=== PATIENT | female | born 1960 | race Caucasian/White ===

== ENCOUNTER 2020-03-13 09:36 | Outpatient (REF) | payer OTHER, SELFPAY ==
[2020-03-13 10:15] LABS: COVID-19 Test Negative (Negative); IDNOW Serial# 55D5AD1C
== END 2020-03-13 09:37 | disposition home or self-care (01) ==
LOC: HO.EMPCOV 09:36
PROVIDERS: PCP Internal Medicine; Visit Provider Internal Medicine
DX: Z20.828 Contact with and (suspected) exposure to other viral communicable diseases (principal)
CPT/HCPCS: 87635; C9803

== ENCOUNTER 2020-06-13 07:39 | Outpatient (REF) | payer OTHER, SELFPAY ==
[2020-06-13 07:58] LABS: COVID-19 Test Negative (Negative)
== END 2020-06-13 07:40 | disposition home or self-care (01) ==
LOC: HO.EMPCOV 07:39
PROVIDERS: Visit Provider Internal Medicine
DX: Z20.822 Contact with and (suspected) exposure to COVID-19 (principal)
CPT/HCPCS: 36415; 87635; C9803

== ENCOUNTER 2020-07-04 07:35 | Outpatient (REF) | payer OTHER, SELFPAY ==
[2020-07-04 08:17] LABS: COVID-19 Test Negative (Negative); IDNOW Serial# 55D5AD1C
== END 2020-07-04 07:36 | disposition home or self-care (01) ==
LOC: HO.EMPCOV 07:35
PROVIDERS: Visit Provider Internal Medicine
DX: Z20.822 Contact with and (suspected) exposure to COVID-19 (principal)
CPT/HCPCS: 36415; 87635; C9803

== ENCOUNTER 2020-07-13 09:29 | Outpatient (REF) | payer OTHER, SELFPAY ==
[2020-07-13 09:43] LABS: COVID-19 Test Positive (Negative); IDNOW Serial# 55D5AD1C
== END 2020-07-13 09:30 | disposition home or self-care (01) ==
LOC: HO.LAB 09:29
PROVIDERS: Visit Provider Internal Medicine
DX: Z20.822 Contact with and (suspected) exposure to COVID-19 (principal)
CPT/HCPCS: 36415; 87635; C9803

== ENCOUNTER 2020-07-13 10:24 | Outpatient (REF) | payer OTHER, SELFPAY ==
--- NOTE | ~2020-07-13 | XR_ITS ---
EXAMINATION: XR CHEST CLINICAL INFORMATION: Shortness of breath COMPARISON: None TECHNIQUE: 2 views of the chest were obtained. FINDINGS: No significant abnormality is noted involving the heart, lungs, mediastinum, bony thorax or soft tissues. XR/XR chest 2V IMPRESSION: Unremarkable chest examination.
== END 2020-07-13 10:25 | disposition home or self-care (01) ==
LOC: HO.HMGCX 10:24
PROVIDERS: PCP Internal Medicine; Visit Provider Hospitalist
DX: R06.02 Shortness of breath (principal)
CPT/HCPCS: 71046

== ENCOUNTER 2020-08-07 08:58 | Outpatient (REF) | payer OTHER, SELFPAY ==
[2020-08-07 11:34] LABS: Glucose Urine UA NEG (NEG); Leukocyte Esterase Urine 1+ (NEG); Nitrite Urine NEG (NEG); PH 5.5 (5.0-8.0); Urine Blood NEG (NEG); Urine Ketones NEG (NEG); Urine Protein NEG (NEG-TRACE)
[2020-08-07 11:37] LABS: Appearance Urine HAZY; Color Urine YELLOW
[2020-08-07 11:40] LABS: Hematocrit 41.3 % (37-47); Hemoglobin 13.4 g/dl (12.0-16.0); Mean Corpuscular HGB Conc 32.4 g/dl (31.0-35.0); Mean Corpuscular Hemoglobin 29.1 pg (27.0-33.0); Mean Corpuscular Volume 89.6 fL (80-98); Mean Platelet Volume 10.4 fL (9.4-12.3); Platelet Count 278 X10*3/uL (160-400); Red Blood Count 4.61 X10*6/uL (4.20-5.50); Red Cell Distribution Width 13.2 % (11.0-16.0); White Blood Count 6.4 X10*3/uL (4.8-10.8)
[2020-08-07 11:50] LABS: RBC Urine 0 /HPF (0); Squamous Epithelial Cell Urine 1+ /LPF
[2020-08-07 11:51] LABS: Mucus Urine 1+ /LPF
[2020-08-07 11:56] LABS: Alanine Aminotransferase 25 U/L (0-31); Alkaline Phosphatase 75 U/L (39-117); Anion Gap 14 (12-20); Aspartate Amino Transferase 23 U/L (5-31); Bilirubin Total 0.7 mg/dL (0.0-1.0); Blood Urea Nitrogen 13 mg/dL (9-16); Calcium 8.8 mg/dL (8.4-10.2); Carbon Dioxide 24 mmol/L (22-29); Chloride 104 mmol/L (96-108); Cholesterol 221 mg/dL; Estimated Glomerular Filt Rate > 60; Glucose Fasting 103 mg/dL (60-99); HDL Cholesterol 77 mg/dL; LDL Cholesterol Calculated 129 mg/dl; Potassium 4.4 mmol/L (3.3-5.1); Sodium 138 mmol/L (135-145); Total Protein 6.7 g/dL (6.5-8.0); Triglycerides 78 mg/dL
[2020-08-07 12:09] LABS: TSH reflex Free T4 1.15 uIU/mL (0.32-4.0)
== END 2020-08-07 08:59 | disposition home or self-care (01) ==
LOC: HO.HMGCLDS 08:58
PROVIDERS: PCP Internal Medicine; Visit Provider Internal Medicine
DX: R53.83 Other fatigue (principal)
CPT/HCPCS: 36415; 80053; 80061; 81001; 82306; 84443; 85027

== ENCOUNTER 2021-01-10 08:46 | Outpatient (REF) | payer OTHER, SELFPAY ==
[2021-01-10 11:26] LABS: Appearance Urine CLEAR; Color Urine YELLOW; Glucose Urine UA NEG (NEG); Leukocyte Esterase Urine TRACE (NEG); Nitrite Urine NEG (NEG); Urine Blood NEG (NEG); Urine Ketones NEG (NEG); Urine Protein NEG (NEG-TRACE)
[2021-01-10 11:46] LABS: Alanine Aminotransferase 25 U/L (0-31); Albumin Level 4.3 g/dL (3.5-5.0); Alkaline Phosphatase 64 U/L (39-117); Anion Gap 13 (12-20); Aspartate Amino Transferase 24 U/L (5-31); Bilirubin Total 0.7 mg/dL (0.0-1.0); Blood Urea Nitrogen 14 mg/dL (9-16); Calcium 9.5 mg/dL (8.4-10.2); Carbon Dioxide 27 mmol/L (22-29); Chloride 104 mmol/L (96-108); Estimated Glomerular Filt Rate > 60; Glucose Fasting 94 mg/dL (60-99); Potassium 4.8 mmol/L (3.3-5.1); Sodium 139 mmol/L (135-145)
[2021-01-10 12:31] LABS: Renal Epithelial Cells Urine TRACE /LPF; Squamous Epithelial Cell Urine TRACE /LPF
[2021-01-10 12:32] LABS: Bacteria Urine TRACE /LPF; RBC Urine 0 /HPF (0)
[2021-01-18 09:21] LABS: Aldosterone/Renin Ratio 4.8 Ratio (0.9-28.9); Plasma Renin Activity 0.84 ng/mL/h (0.25-5.82)
== END 2021-01-10 08:47 | disposition home or self-care (01) ==
LOC: HO.HMGCLDS 08:46
PROVIDERS: PCP Internal Medicine; Visit Provider Internal Medicine
DX: I10 Essential (primary) hypertension (principal)
CPT/HCPCS: 36415; 80053; 81001; 82088; 82530; 84443

== ENCOUNTER 2021-01-10 09:34 | Outpatient (REF) | payer OTHER, SELFPAY ==
[2021-01-10 10:09] LABS: COVID-19 Test Negative (Negative)
== END 2021-01-10 09:35 | disposition home or self-care (01) ==
LOC: HO.LAB 09:34
PROVIDERS: Visit Provider Internal Medicine
DX: Z20.822 Contact with and (suspected) exposure to COVID-19 (principal)
CPT/HCPCS: 36415; 87635; C9803

== ENCOUNTER 2021-02-05 14:50 | Outpatient (REF) | payer OTHER, SELFPAY | END 2021-02-05 14:51 | disposition home or self-care (01) | LOC: HO.LAB 14:50 | PROVIDERS: PCP Internal Medicine; Visit Provider Internal Medicine | DX: Z20.822 Contact with and (suspected) exposure to COVID-19 (principal) | CPT/HCPCS: C9803; U0003; U0005 ==

== ENCOUNTER → 2021-03-26 09:46 | Outpatient (BNVA) | payer OTHER, SELFPAY | LOC: CF 12:06 | PROVIDERS: PCP Internal Medicine; Referring Provider Internal Medicine; Visit Provider Internal Medicine Cardiovascular Disease ==

== ENCOUNTER 2021-03-26 11:08 | Outpatient (REF) | payer OTHER, SELFPAY ==
[2021-03-26 12:01] LABS: COVID-19 Test Negative (Negative); IDNOW Serial# 08D9AD1C
== END 2021-03-26 11:09 | disposition home or self-care (01) ==
LOC: HO.LAB 11:08
PROVIDERS: Visit Provider Internal Medicine
DX: Z20.822 Contact with and (suspected) exposure to COVID-19 (principal)
CPT/HCPCS: 36415; 87635; C9803

== ENCOUNTER → 2021-04-12 07:12 | Outpatient (REF) | payer OTHER, SELFPAY ==
--- NOTE | 2021-04-12 07:34 | CA_ITS ---
Transthoracic Echocardiogram Patient (Last, First, Middle): Michelle Jackman, Gender: Female Date of : 1960 Age: 60 Procedure Date: 04/12/2021 Procedure Type: Transthoracic Echocardiogram Location: OP Height: 160.02 cm Weight: 75.75 kg BSA: 1.79 m2 Heart Rate: bpm BP: 110 / 70 mmHg Referring MD: Westley Haines MD Symptoms: I10 - Essential (primary) hypertension Study Quality: Fair ECG Rhythm: Sinus Conclusions: - The left ventricular systolic function is normal. The calculated ejection fraction is 62% by biplane method. - There is mild calcification of the aortic valve. - There is mild anterior mitral leaflet thickening. There is mild mitral valve regurgitation. Findings Left Ventricle Normal left ventricular cavity size. There is normal left ventricular wall thickness. The left ventricular systolic function is normal. The calculated ejection fraction is 62% by biplane method. There is no evidence of regional wall motion abnormalities. Diastolic function is normal for age. Right Ventricle Normal right ventricular cavity size and systolic function. Atria Both atria are normal in size. Aortic Valve There is a normal trileaflet aortic valve. There is mild calcification of the aortic valve. There is no aortic valve stenosis. There is trace (trivial) aortic valve regurgitation. Mitral Valve There is mild anterior mitral leaflet thickening. There is mild mitral valve regurgitation. There is no mitral valve stenosis. Pulmonic Valve The pulmonic valve was not well visualized. Tricuspid Valve Normal tricuspid valve structure. There is trace tricuspid valve regurgitation. The pulmonary artery systolic pressure is normal. Great Vessels The aortic annulus, sinuses of valsalva, asc aorta, and aortic arch are normal in size. Venous The inferior vena cava is normal in size and collapses greater than 50% with inspiration. Pericardium/Pleural There is no evidence of pericardial effusion. Prior Study Comparison No prior study available for comparison. Measurements 2D Linear Measurements IVSd: 0.88 0.6-0.9/0.6-1.0 cm LVIDd: 4.41 3.9-5.3/4.2-5.9 cm LVIDd Index: 2.46 2.4-3.2/2.2-3.1 cm/m2 LVIDs: 2.78 2.0-3.6 cm LVPWd: 0.81 0.7-1.1 cm Ao Root: 2.80 2.1-3.5 cm LA Diam: 3.40 2.7-3.8/3.0-4.0 cm LAIDs Index: 1.90 1.5-2.3 cm/m2 LV Mass: 146.28 67-162/88-224 g LV Mass Index: 81.72 43-95/49-115 g/m2 LVOT Diam: 2.00 3.0+(-)1.3 cm 2D Systolic Function EF 4C: 58.70 >55% EF 2C: 66.70 >55% EF BiP: 62.10 >55% Mitral Valve MV Pk E: 0.84 MV PK A: 0.78 MV Decel Time: 199.00 E/A: 1.10 E'Lateral: 9.90 E'Medial: 7.18 E/E' Med: 11.60 E/E' Lat: 8.40 PHT: 58.00 MVA PHT: 3.79 Decel Dupage: 4.20 Aortic Valve AoV Pk Jeremy: 1.16 AoV Mn Jeremy: 0.79 AoV VTI: 0.27 AoV Pk Grad: 5.00 Aov Mn Grad: 3.00 BETO Cont.VTI: 3.02 LVOT LVOT Pk Jeremy: 1.18 LVOT Mn Jeremy: 0.72 LVOT VTI: 0.26 LVOT Pk Grad: 6.00 LVOT Mn Grad: 2.00 LVOT Diam: 2.00 LVOT Area: 3.14 Diastolic Function MV Pk E: 0.84 MV Pk A: 0.78 E/A: 1.10 E'Medial: 7.18 E/E' Med: 11.60 E' Laterial: 9.90 E/E' Lat: 8.40 Right Ventricle TAPSE (mm): 1.77 TVS' Jeremy: 11.30 Tricuspid Valve TR Pk Jeremy: 2.65 TR Pk Grad: 28.00 RA Press: 3.00 RVSP: 31.00 Great Vessels Aorta Ao Root-2D: 2.80 2.0-3.7 cm Ao Asc: 3.50 2.1-3.4 cm Ao Arch: 2.40 Updated in Other Vendor System with Status of Final Cosmo Leggett MD electronically signed on 04/14/2021 2:24:27 PM with status of Final
--- NOTE | 2021-04-12 07:34 | HM_ITS ---
Conclusion: 1. Patient was monitored for 13 days and 14 hours 2. Baseline rhythm is normal sinus rhythm with average heart of 81 beats per minute 3. No significant pauses or bradycardia noted 4. Rare ectopy noted with total burden of less than 0.1% 5. Total of 28 supraventricular tachycardia episodes with longest episode lasting 14 beats and the fastest episode at 198 beats per minute 6. One episode of 6 beat run of nonsustained VT noted 7. No patient reported events MTDD
[2021-04-18 17:01] LABS: Metanephrine, Free 34 pg/mL (<=57); Normetanephrines, Free 96 pg/mL (<=148); Total Metanephrine, Free 130 pg/mL (<=205)
== END ==
LOC: HO.CARD 07:12
PROVIDERS: PCP Internal Medicine; Visit Provider Internal Medicine Cardiovascular Disease
DX: R00.2 Palpitations (principal); I10 Essential (primary) hypertension
CPT/HCPCS: 36415; 83835; 93246; 93306

== ENCOUNTER → 2021-05-28 09:13 | Outpatient (BNVA) | payer OTHER, SELFPAY | PROVIDERS: PCP Internal Medicine; Referring Provider Internal Medicine; Visit Provider Internal Medicine Cardiovascular Disease ==

== ENCOUNTER 2021-08-15 09:12 | Outpatient (REF) | payer OTHER, SELFPAY ==
[2021-08-15 11:57] LABS: Hematocrit 41.3 % (37.0-47.0); Hemoglobin 13.7 g/dl (12.0-16.0); Mean Corpuscular HGB Conc 33.2 g/dl (31.0-35.0); Mean Corpuscular Hemoglobin 30.2 pg (27.0-33.0); Mean Corpuscular Volume 91.2 fL (80.0-98.0); Mean Platelet Volume 10.7 fL (9.4-12.3); Platelet Count 272 X10*3/uL (160-400); Red Blood Count 4.53 X10*6/uL (4.20-5.50); Red Cell Distribution Width 13.1 % (11.0-16.0); White Blood Count 7.3 X10*3/uL (4.8-10.8)
[2021-08-15 12:10] LABS: Vitamin D 25-OH Total 41.5 ng/mL (>30)
[2021-08-15 12:29] LABS: Alanine Aminotransferase 12 U/L (0-31); Albumin Level 4.4 g/dL (3.5-5.0); Alkaline Phosphatase 57 U/L (39-117); Anion Gap 16 (12-20); Aspartate Amino Transferase 19 U/L (5-31); Bilirubin Total 0.8 mg/dL (0.0-1.0); Blood Urea Nitrogen 16 mg/dL (9-16); Calcium 9.7 mg/dL (8.4-10.2); Carbon Dioxide 24 mmol/L (22-29); Chloride 102 mmol/L (96-108); Cholesterol 262 mg/dL; Estimated Glomerular Filt Rate > 60; Glucose Fasting 108 mg/dL (60-99); HDL Cholesterol 125 mg/dL; LDL Cholesterol Calculated 124 mg/dl; Potassium 4.8 mmol/L (3.3-5.1); Sodium 137 mmol/L (135-145); Total Protein 7.2 g/dL (6.5-8.0); Triglycerides 67 mg/dL
== END 2021-08-15 09:13 | disposition home or self-care (01) ==
LOC: HO.HMGCLDS 09:12
PROVIDERS: Visit Provider Internal Medicine
DX: Z00.00 Encounter for general adult medical examination without abnormal findings (principal); I10 Essential (primary) hypertension
CPT/HCPCS: 36415; 80053; 80061; 82306; 85027

== ENCOUNTER 2021-10-03 07:55 | Outpatient (REF) | payer OTHER, SELFPAY ==
--- NOTE | ~2021-10-03 | MM_ITS ---
EXAMINATION: MM SCREENING DIGITAL BREAST TOMOSYNTHESIS, BILATERAL CLINICAL INFORMATION: Screening. Asymptomatic. The lifetime risk of breast cancer based on the Tyrer-Cuzick Model is 8%. COMPARISON: Outside mammography: 06/24/2019, 05/12/2018, 05/06/2017 ([place]). TECHNIQUE: Digital breast tomosynthesis is performed in both the craniocaudal and mediolateral oblique views along with computer-aided detection (CAD). Synthesized 2D images are generated from the tomosynthesis. FINDINGS: The breasts are heterogeneously dense, which may obscure small masses (ACR BI-RADS breast composition Category c). There are no significant masses, abnormal calcifications, or other abnormalities. Breast tissue composition borders on average fibroglandular. Parenchymal pattern is similar to prior outside studies. No developing density or significant changes. MM/MM tomosynthesis screening BI IMPRESSION: There are no significant changes from prior study. ASSESSMENT: BI-RADS 1: Negative RECOMMENDATION: Routine annual mammography screening. This patient's information was entered into a reminder system with a target due date for their next mammogram.
== END 2021-10-03 07:56 | disposition home or self-care (01) ==
LOC: HO.MAMMO 07:55
PROVIDERS: Visit Provider Internal Medicine
DX: Z12.31 Encounter for screening mammogram for malignant neoplasm of breast (principal)
CPT/HCPCS: 77063; 77067

== ENCOUNTER 2022-04-03 09:55 | Outpatient (REF) | payer OTHER, SELFPAY ==
[2022-04-03 11:17] LABS: Appearance Urine Cloudy; Color Urine Yellow; Glucose Urine UA Negative (Negative); Leukocyte Esterase Urine Large (3+) (Negative); Nitrite Urine Negative (Negative); Specific Gravity - Urine <= 1.005 (1.005-1.025); UMIC TRIGGER UA YES; Urine Blood Small (1+) (Negative); Urine Ketones Negative (Negative); Urine Protein Negative (Neg-Trace)
[2022-04-03 11:34] LABS: Bacteria Urine Trace (None Seen); Hyaline Casts Urine 0-2 /LPF (0-2); RBC Urine 0-2 /HPF (0-2); WBC Urine >50 /HPF (0-5)
[2022-04-03 14:33] LABS: Basophils Absolute Auto 0.1 X10*3/uL (0.0-0.2); Basophils Percent Auto 0.6 % (0-2); Eosinophils Absolute Auto 0.2 X10*3/uL (0.0-0.4); Eosinophils Percent Auto 2.1 % (0-4); Hematocrit 43.7 % (37.0-47.0); Hemoglobin 14.1 g/dl (12.0-16.0); Imm Gran Abs Auto 0.02 X10*3/uL (0.00-0.03); Imm Gran Pct Auto 0.3 % (0.0-0.4); Lymphocytes Absolute Auto 2.5 X10*3/uL (1.2-4.9); Lymphocytes Percent Auto 32.4 % (20-40); MANUAL DIFF FLAG NO; Mean Corpuscular HGB Conc 32.3 g/dl (31.0-35.0); Mean Platelet Volume 11.1 fL (9.4-12.3); Monocytes Absolute Auto 0.5 X10*3/uL (0.1-1.2); Monocytes Percent Auto 6.7 % (2-11); Neutrophils Absolute Auto 4.5 x10*3/uL (2.0-8.3); Neutrophils Percent Auto 57.9 % (45-73); Platelet Count 239 X10*3/uL (160-400); Red Cell Distribution Width 13.2 % (11.0-16.0); White Blood Count 7.8 X10*3/uL (4.8-10.8)
[2022-04-03 16:56] LABS: Alanine Aminotransferase 18 U/L (0-31); Albumin Level 4.3 g/dL (3.5-5.0); Alkaline Phosphatase 63 U/L (39-117); Anion Gap 14 (12-20); Aspartate Amino Transferase 19 U/L (5-31); Bilirubin Total 0.6 mg/dL (0.0-1.0); Blood Urea Nitrogen 13 mg/dL (9-16); Calcium 9.4 mg/dL (8.4-10.2); Carbon Dioxide 27 mmol/L (22-29); Chloride 103 mmol/L (96-108); Cholesterol 253 mg/dL; Estimated Glomerular Filt Rate > 60; Glucose Fasting 106 mg/dL (60-99); HDL Cholesterol 112 mg/dL; LDL Cholesterol Calculated 131 mg/dl; Potassium 4.9 mmol/L (3.3-5.1); Sodium 139 mmol/L (135-145); TSH reflex Free T4 1.13 uIU/mL (0.32-4.0); Total Protein 6.8 g/dL (6.5-8.0); Triglycerides 52 mg/dL; Vitamin D 25-OH Total 45.2 ng/mL (>30)
== END 2022-04-03 09:56 | disposition home or self-care (01) ==
LOC: HO.HMGCLDS 09:55
PROVIDERS: PCP Internal Medicine; Visit Provider Internal Medicine
DX: Z00.00 Encounter for general adult medical examination without abnormal findings (principal); I10 Essential (primary) hypertension
CPT/HCPCS: 36415; 80053; 80061; 81001; 82306; 84443; 85025

== ENCOUNTER 2022-04-09 08:29 | Outpatient (REF) | payer OTHER, SELFPAY ==
--- NOTE | ~2022-04-09 | MM_ITS ---
EXAMINATION: BONE DENSITOMETRY CLINICAL INDICATION: Asymptomatic menopausal state. COMPARISON: None (current study represents initial baseline exam). TECHNIQUE: Using a [employer] DXA System (software version: 13.1) manufactured by [employer], dual-energy x-ray absorptiometry was performed of the lumbar spine and left hip. The images are of good technical quality. Summary results are attached. FINDINGS: AP SPINE L1-L4: BMD 1.052 g/cm2, Z-score -0.1, T-score -1.1, osteopenia. LEFT FEMUR, NECK: BMD 0.658 g/cm2, Z-score -1.6, T-score -2.7, osteoporosis. LEFT FEMUR, TOTAL: BMD 0.740 g/cm2, Z-score -1.3, T-score -2.1, osteopenia. IDENTIFIED RISK FACTORS: Menopause. HISTORY OF FRACTURE: None listed. MEDICATIONS: Calcium supplement and/or multivitamin. Vitamin D. MM/XR DEXA axial skeleton IMPRESSION: 1. DIAGNOSIS: Osteoporosis based on the lowest T-score value of -2.7 in the femoral neck applying World Health Organization criteria. 2. 10-YEAR FRACTURE RISK PREDICTION, FRAX: According to the guidelines, FRAX calculation should only be performed on patients in the osteopenia bone density category.?Therefore, FRAX was not performed on this patient.? 3. Treatment Recommendations: NOF guidelines recommend consideration for treatment in postmenopausal women and men age 50 and older presenting with the following: -A hip or vertebral (clinical or morphometric) fracture. -T-score less than or equal to -2.5 at the femoral neck or spine after appropriate evaluation to exclude secondary causes. -Low bone mass at the hip or spine and a 10-year fracture probability by FRAX of greater than or equal to 3% for hip fracture or greater than or equal to 20% for major osteoporotic fracture based on the [place] adapted WHO algorithm. 4. Other Recommendations: All treatment decisions require clinical judgment and consideration of individual patient factors, including patient preferences, comorbidities, previous drug use, risk factors not captured in the FRAX model (e.g. frailty, falls, vitamin D deficiency, increased bone turnover, interval significant decline in bone density) and possible under or overestimation of fracture risk by FRAX. Additional medical evaluation for secondary cause of low bone mineral density may be appropriate. FUTURE SCAN RECOMMENDATION: People with diagnosed cases of osteoporosis or at high risk for fracture should have regular bone mineral density tests. For patients eligible for Medicare, routine testing is allowed once every 2 years. The testing frequency can be increased to one year for patients who have rapidly progressing disease, those who are receiving or discontinuing medical therapy to restore bone mass, or have additional risk factors.
== END 2022-04-09 08:30 | disposition home or self-care (01) ==
LOC: HO.MAMMO 08:29
PROVIDERS: PCP Internal Medicine; Visit Provider Internal Medicine
DX: Z13.820 Encounter for screening for osteoporosis (principal); Z78.0 Asymptomatic menopausal state
CPT/HCPCS: 77080

== ENCOUNTER → 2022-05-22 08:39 | Outpatient (BNVA) | payer OTHER, SELFPAY | PROVIDERS: PCP Internal Medicine; Referring Provider Internal Medicine; Visit Provider Internal Medicine Cardiovascular Disease | DX: I47.1 Supraventricular tachycardia (principal); I10 Essential (primary) hypertension | CPT/HCPCS: 93005 ==

== ENCOUNTER 2022-10-10 07:56 | Outpatient (REF) | payer OTHER, SELFPAY ==
--- NOTE | ~2022-10-10 | MM_ITS ---
EXAMINATION: MM SCREENING DIGITAL BREAST TOMOSYNTHESIS, BILATERAL CLINICAL INFORMATION: Screening. Asymptomatic. The lifetime risk of breast cancer based on the Tyrer-Cuzick Model is 8%. COMPARISON: Mammography: 10/03/2021, 09/24/2019, outside exam 05/12/2018 ([place]). TECHNIQUE: Digital breast tomosynthesis is performed in both the craniocaudal and mediolateral oblique views along with computer-aided detection (CAD). Synthesized 2D images are generated from the tomosynthesis. Additional right MLO view is provided. FINDINGS: The breasts are heterogeneously dense, which may obscure small masses (ACR BI-RADS breast composition Category c). Breast tissue composition borders on average fibroglandular. There are no significant masses, abnormal calcifications, or other abnormalities. Parenchymal pattern is similar to prior studies. There is no developing density or architectural abnormality. The axilla and skin contours are unremarkable. No significant changes. MM/MM tomosynthesis screening BI IMPRESSION: No mammographic evidence of malignancy. ASSESSMENT: BI-RADS 1: Negative RECOMMENDATION: Routine annual mammography screening. This patient's information was entered into a reminder system with a target due date for their next mammogram.
== END 2022-10-10 07:57 | disposition home or self-care (01) ==
LOC: HO.MAMMO 07:56
PROVIDERS: PCP Internal Medicine; Visit Provider Internal Medicine
DX: Z12.31 Encounter for screening mammogram for malignant neoplasm of breast (principal)
CPT/HCPCS: 77063; 77067

== ENCOUNTER 2023-03-06 12:17 | Outpatient (AMB) | payer OTHER, SELFPAY ==
[2023-03-06 12:19] VITALS: BP 120/80; PULSE 104; O2SAT 96; BMI 28.9
--- NOTE | 2023-03-06 12:19 | A.OFFPC_ITS ---
Vital Signs 03/06/23 12:19 Height 5 ft 3 in Weight 163 lb 4 oz BMI 28.9 BP 120/80 Blood Pressure Location Rt brachial Position Sitting Pulse 104 H Pulse Source Pulse Oximeter Pulse Oximetry (%) 96 Oxygen Delivery Method Room Air Intake Visit Reasons: Followup rash, review Derm dx Intake Note: pt is here for f/u on rash, review derm dx Ply Splicer Required: No Accompanied by: Self / Same As Patient Allergies No Known Allergies Allergy (Verified 03/06/23 12:20) Medication List - Last Reconciled 03/06/23 by Coby Estes MD metoprolol tartrate 12.5 mg (1/2 x 25 mg) PO ONCE PRN olmesartan 5 mg PO DAILY Tobacco use date assessed: 05/02/22 Dental Screening Dental Screen Date: 03/06/23 Did you have a dental visit in the last 12 months?: Yes Did you have a dental problem in the last 6 months where you did not have access to dental care?: No Was dental information given to patient?: Patient has dentist HPI Followup rash, review Derm dx HPI Details Patient presents for the follow-up of chronic not pruritic rash for the last 6 months. She has been treated by local health information provider and tried cortisone cream and prednisone taper without significant improvement. Patient is looking for 2nd opinion. Hypertension is controlled on olmesartan. [facility] Medical History Skin cancer Annual physical exam SVT (supraventricular tachycardia) Chest pain HTN (hypertension) Right elbow tendinitis Fatigue DJD (degenerative joint disease) Lower back pain Surgical History H/O colonoscopy Family History Mother COPD (chronic obstructive pulmonary disease) Social History Housing: House Alcohol intake: current Alcohol intake frequency: holidays/special occasions only Patient Tobacco Use Status: Never used Tobacco e-Cigarette/Vaping Use: Never Used Second Hand Smoke Exposure: No Current occupational status: employed Cognitive needs: No Hearing needs: No Vision needs: No Questionnaire PHQ-9 Over the last 2 weeks, how often have you been bothered by any of the following problems? 1. Little interest or pleasure in doing things: not at all 2. Feeling down, depressed, or hopeless: not at all 3. Trouble falling or staying asleep, or sleeping too much: not at all 4. Feeling tired or having little energy: not at all 5. Poor appetite or overeating: not at all 6. Feeling bad about yourself - or that you are a failure or have let yourself or your family down: not at all 7. Trouble concentrating on things, such as reading the newspaper or watching television: not at all 8. Moving or speaking so slowly that other people could have noticed. Or the opposite - being so fidgety or restless that you have been moving around a lot more than usual: not at all 9. Thoughts that you would be better off or of hurting yourself in some way: not at all Total score: 0 Depression Screening Interpretation: Negative Depression Screening Done: Yes 09922 - PHQ-9 Billing: Yes Source: Developed by Drs. Abdi Rivera, Nuria Houston, Neri Velasquez and colleagues, with an educational toni from [employer]. Thrive Questionnaire Date Thrive assessed: 03/06/23 I am a: Patient What is your living situation today?: I have a steady place to live Within the past 12 months, did the food you bought not last and you didn't have the money to get more?: Never true Within the past 12 months, did you worry whether your food would run out before you got money to buy more?: Never true Do you have trouble paying for medicines?: No Do you have trouble getting transportation to medical appointments?: No Do you have trouble paying your heating and electricity bill?: No Do you have trouble taking care of your child, family member or friend?: No Do you have trouble with day-to-day activities such as bathing, preparing meals, shopping, managing finances, etc.?: No Are you currently unemployed and looking for a job?: No Are you interested in more education?: No Please select the resources that you would like help with: None Currently or been in a relationship where the following occur: no concerns reported AUDIT C Alcohol Use Questionnaire (AUDIT-C) 1. How often do you have a drink containing alcohol?: 2-3 times a week 2. How many drinks containing alcohol do you have on a typical day when you are drinking?: 1 or 2 3. How often do you have six or more drinks on one occasion?: Never Total Score: 3 Score Reviewed/Action Taken: Yes JORDY-7 AMB Questionnaire JORDY-7 Date JORDY - 7 assessed: 03/06/23 Feeling nervous, anxious, or on edge: 0 = Not at all Not being able to stop or control worryin = Not at all Worrying too much about different things: 0 = Not at all Trouble relaxin = Not at all Being so restless that it is hard to sit still: 0 = Not at all Becoming easily annoyed or irritable: 0 = Not at all Feeling afraid as if something awful might happen: 0 = Not at all Total JORDY-7 score (0-4 normal; 5-9 mild; 10-14 moderate; 15-21 severe): 0 Source: Developed by Drs. Abdi Rivera, Nuria Houston, Neri le nd colleagues, with an educational toni from [employer]. JORDY-7 Assessment Billing JORDY-7 Assessment Tool: JORDY-7 Assessment 00771 Review of Systems Const All systems reviewed & are unremarkable except as noted in HPI and below Reports no additional complaints Eyes Reports no additional complaints ENT Reports no additional complaints Card Reports no additional complaints Resp Reports no additional complaints GI Reports no additional complaints Reports no additional complaints Physical exam (Primary Care) Vital Signs: Last Vital Signs Pulse 104 H 03/06/23 12:19 BP 120/80 03/06/23 12:19 Pulse Ox 96 03/06/23 12:19 Oxygen Delivery Method Room Air 03/06/23 12:19 BMI result Body Mass Index 28.9 Tobacco/Smoking Status: Tobacco use Status Tobacco use date assessed 05/02/22 03/06/23 12:20 Patient Tobacco Use Status Never used Tobacco 03/06/23 12:20 e-Cigarette/Vaping Use Never Used 03/06/23 12:20 PHQ-9: PHQ-9 Score PHQ-9: Total score 0 03/06/23 12:27 Depression Screening Interpretation: Negative Thrive Assessment: Date of Thrive Assessment Date Thrive assessed 03/06/23 03/06/23 12:27 Currently or been in a relationship where the following occur: no concerns reported Const General: no acute distress HENMT Head: Yes normal to inspection Eyes General: appearance normal, both eyes and all related structures Resp Effort & Inspection: normal respiratory effort Auscultation: clear to auscultation bilaterally Cardio Rhythm: regular rhythm Heart sounds: S1 normal heart sound present and S2 normal heart sound present GI Inspection: Yes normal to inspection Palpation (GI): Soft to palpation Skin Other: Erythematous irregular borders rash with central clearing and slight scaling on the upper chest, back and extensor surface of extremities Assessment and Plan Assessment & Plan (1) HTN (hypertension): Code(s): I10 - Essential (primary) hypertension Plan: Continue olmesartan (2) Annual physical exam: Code(s): Z. - Encounter for general adult medical examination without abnormal findings (3) Rash: Comment: Treated by [facility] Code(s): R21 - Rash and other nonspecific skin eruption Plan: Patient will be referred for 2nd opinion to the health information provider of pt's choice Orders: Orders Comprehensive [place]. Panel Fast Today I10 - Essential (primary) hypertension, Z00. - Encounter for general adult medical examination without abnormal findings Erythrocyte Sedimentation Rate Today I10 - Essential (primary) hypertension, Z00.00 - Encounter for general adult medical examination without abnormal findings TSH reflex Free T4 Today I10 - Essential (primary) hypertension, R21 - Rash and other nonspecific skin eruption, Z00.00 - Encounter for general adult medical examination without abnormal findings Complete Blood Count Auto Diff Today I10 - Essential (primary) hypertension, Z00.00 - Encounter for general adult medical examination without abnormal findings Lipid Panel Today I10 - Essential (primary) hypertension, Z00.00 - Encounter for general adult medical examination without abnormal findings NANCY Reflex Titer and Pattern Today I10 - Essential (primary) hypertension, R21 - Rash and other nonspecific skin eruption, Z00.00 - Encounter for general adult medical examination without abnormal findings Hemoglobin A1c Today I10 - Essential (primary) hypertension, R21 - Rash and other nonspecific skin eruption, Z00.00 - Encounter for general adult medical examination without abnormal findings UA w Microscopic Today I10 - Essential (primary) hypertension, R21 - Rash and o ther nonspecific skin eruption, Z00.00 - Encounter for general adult medical examination without abnormal findings Medications: New azithromycin For 250 mg dose pack: take 500 mg today (day 1), then 250 mg for 4 days (days 2-5) PO 6 tabs 0RF albuterol sulfate 90 mcg/actuation 2 puffs inhalation Q6H PRN 6.7 grams 0RF shortness of breath or wheezing Coding Level of Care Code Est Pt Level 3 (21727) Diagnoses HTN (hypertension) I10 Annual physical exam Z00.00 Rash R21 Additional Codes JORDY-7 Assessment Billing - JORDY-7 Assessment Tool: JORDY-7 Assessment 15503 ([id number])
== END 2023-03-06 13:51 | disposition home or self-care (01) ==
PROVIDERS: PCP Internal Medicine; Visit Provider Internal Medicine
DX: I10 Essential (primary) hypertension (principal); Z00.00 Encounter for general adult medical examination without abnormal findings; R21 Rash and other nonspecific skin eruption
CPT/HCPCS: 99213

== ENCOUNTER 2023-03-12 06:40 | Outpatient (REF) | payer OTHER, SELFPAY ==
[2023-03-12 11:58] LABS: MANUAL DIFF FLAG NO
[2023-03-12 12:03] LABS: Appearance Urine Clear; Color Urine Yellow; Glucose Urine UA Negative (Negative); Leukocyte Esterase Urine Trace (Negative); Nitrite Urine Negative (Negative); Specific Gravity - Urine <= 1.005 (1.005-1.025); UMIC TRIGGER UA YES; Urine Blood Negative (Negative); Urine Ketones Negative (Negative); Urine Protein Negative (Neg-Trace)
[2023-03-12 12:06] LABS: Bacteria Urine None Seen (None Seen); Hyaline Casts Urine 0-2 /LPF (0-2); RBC Urine 0-2 /HPF (0-2); Squamous Epithelial Cell Urine 0-2 /HPF (0-2)
[2023-03-12 12:10] LABS: Basophils Percent Auto 0.4 % (0-2); Eosinophils Absolute Auto 0.3 X10*3/uL (0.0-0.4); Eosinophils Percent Auto 3.7 % (0-4); Hematocrit 40.5 % (37.0-47.0); Hemoglobin 13.3 g/dl (12.0-16.0); Imm Gran Abs Auto 0.05 X10*3/uL (0.00-0.03); Imm Gran Pct Auto 0.7 % (0.0-0.4); Lymphocytes Absolute Auto 2.8 X10*3/uL (1.2-4.9); Lymphocytes Percent Auto 41.6 % (20-40); Mean Corpuscular HGB Conc 32.8 g/dl (31.0-35.0); Mean Corpuscular Hemoglobin 30.2 pg (27.0-33.0); Mean Platelet Volume 10.2 fL (9.4-12.3); Monocytes Absolute Auto 0.4 X10*3/uL (0.1-1.2); Monocytes Percent Auto 6.2 % (2-11); Neutrophils Absolute Auto 3.2 x10*3/uL (2.0-8.3); Neutrophils Percent Auto 47.4 % (45-73); Platelet Count 322 X10*3/uL (160-400); Red Cell Distribution Width 12.7 % (11.0-16.0); White Blood Count 6.8 X10*3/uL (4.8-10.8)
[2023-03-12 12:20] LABS: Estimated Average Glucose 111 mg/dL; Hemoglobin A1c % 5.5 % (<6.0)
[2023-03-12 12:27] LABS: Alanine Aminotransferase 22 U/L (0-31); Albumin Level 3.9 g/dL (3.5-5.0); Alkaline Phosphatase 68 U/L (39-117); Anion Gap 11 (12-20); Aspartate Amino Transferase 19 U/L (5-31); Bilirubin Total 0.3 mg/dL (0.0-1.0); Blood Urea Nitrogen 15 mg/dL (9-16); Carbon Dioxide 28 mmol/L (22-29); Chloride 103 mmol/L (96-108); Cholesterol 229 mg/dL (<200); Estimated Glomerular Filt Rate > 60; Glucose Fasting 104 mg/dL (60-99); HDL Cholesterol 91 mg/dL (>40); LDL Cholesterol Calculated 117 mg/dL (<100); Potassium 4.5 mmol/L (3.3-5.1); Sodium 137 mmol/L (135-145); Total Protein 6.8 g/dL (6.5-8.0); Triglycerides 108 mg/dL (<150)
[2023-03-12 12:43] LABS: TSH reflex Free T4 2.07 uIU/mL (0.32-4.0)
[2023-03-12 12:55] LABS: Erythrocyte Sedimentation Rate 8 MM/HR (0-20)
[2023-03-17 14:48] LABS: Anti Nuclear Antibody Screen NEGATIVE (NEGATIVE)
== END 2023-03-12 06:41 | disposition home or self-care (01) ==
LOC: HO.HMGCLDS 06:40
PROVIDERS: PCP Internal Medicine; Visit Provider Internal Medicine
DX: Z00.00 Encounter for general adult medical examination without abnormal findings (principal); I10 Essential (primary) hypertension; R21 Rash and other nonspecific skin eruption
CPT/HCPCS: 36415; 80053; 80061; 81001; 83036; 84443; 85025; 85652; 86038

== ENCOUNTER 2023-03-27 08:53 | Outpatient (AMB) | payer OTHER, SELFPAY ==
[2023-03-27 08:58] VITALS: BP 134/78; PULSE 70; O2SAT 100; BMI 29.9
--- NOTE | 2023-03-27 08:58 | MHC.PC.OV ---
Vital Signs 03/27/23 08:58 Height 5 ft 3 in Weight 169 lb BMI 29.9 BP 134/78 Blood Pressure Location Rt brachial Position Sitting Pulse 70 Pulse Source Pulse Oximeter Pulse Oximetry (%) 100 Oxygen Delivery Method Room Air Intake Visit Reasons: Annual Intake Note: Pt is here today for PE. Pt states that she has been having R hip pain and lower back pain. Allergies No Known Allergies Allergy (Verified 03/27/23 09:01) Medication List - Last Reconciled 03/27/23 by Coby Estes MD albuterol sulfate 90 mcg/actuation 2 puffs inhalation Q6H PRN metoprolol tartrate 12.5 mg (1/2 x 25 mg) PO ONCE PRN olmesartan 5 mg PO DAILY Tobacco use date assessed: 03/27/23 Dental Screening Dental Screen Date: 03/27/23 Did you have a dental visit in the last 12 months?: Yes Did you have a dental problem in the last 6 months where you did not have access to dental care?: No Was dental information given to patient?: Patient has dentist HPI Annual HPI Details Pt presents for PE. Pt c/o persistent rash and has OV with Dermatology in [facility] in 2 weeks. Patient complains of lower back pain radiating to right posterior thigh and right hip on and off for few weeks. Patient denies any weakness, change in bowel bladder function PFSH Medical History Skin cancer Annual physical exam SVT (supraventricular tachycardia) Chest pain HTN (hypertension) Right elbow tendinitis Fatigue DJD (degenerative joint disease) Lower back pain Surgical History H/O colonoscopy Family History Mother COPD (chronic obstructive pulmonary disease) Social History Housing: House Alcohol intake: current Alcohol intake frequency: holidays/special occasions only Patient Tobacco Use Status: Never used Tobacco e-Cigarette/Vaping Use: Never Used Second Hand Smoke Exposure: No Current occupational status: employed Cognitive needs: No Hearing needs: No Vision needs: No Questionnaire Thrive Questionnaire Date Thrive assessed: 03/06/23 JORDY-7 AMB Questionnaire JORDY-7 Date JORDY - 7 assessed: 03/06/23 Source: Developed by Drs. Abdi Rivera, Nuria Houston, Neri Velasquez and colleagues, with an educational toni from [employer]. Review of Systems Const All systems reviewed & are unremarkable except as noted in HPI and below Reports no additional complaints Eyes Reports no additional complaints ENT Reports no additional complaints Card Reports no additional complaints Resp Reports no additional complaints GI Reports no additional complaints Reports no additional complaints Physical exam (Primary Care) Vital Signs: Last Vital Signs Pulse 70 03/27/23 08:58 BP 134/78 03/27/23 08:58 Pulse Ox 100 03/27/23 08:58 Oxygen Delivery Method Room Air 03/27/23 08:58 BMI result Body Mass Index 29.9 Tobacco/Smoking Status: Tobacco use Status Tobacco use date assessed 03/27/23 03/27/23 09:03 Patient Tobacco Use Status Never used Tobacco 03/27/23 09:03 e-Cigarette/Vaping Use Never Used 03/27/23 09:03 Thrive Assessment: Date of Thrive Assessment Date Thrive assessed 03/06/23 03/27/23 09:03 Const General: no acute distress HENMT Head: Yes normal to inspection Ears: hearing grossly normal bilaterally Face and sinus: Yes normal facial exam Eyes General: appearance normal, both eyes and all related structures Neck Neck: Yes no lymphadenopathy and Yes supple Resp Effort & Inspection: normal respiratory effort Auscultation: clear to auscultation bilaterally Cardio Rhythm: regular rhythm Heart sounds: S1 normal heart sound present and S2 normal heart sound present GI Inspection: Yes normal to inspection Palpation (GI): Soft to palpation Percussion: Yes normal to percussion Auscultation: normal bowel sounds Back/Spine/Pelvis Other: There is decreased range of motion in lumbar spine, paraspinal tenderness right more than left, straight leg rising 60 degrees on the right 90 degrees on the left Assessment and Plan Assessment & Plan (1) Hip pain, right: Code(s): M25.551 - Pain in right hip Plan: Referred to physical therapy, meloxicam and baclofen are prescribed (2) Rash: Comment: Treated by [place] [facility] Code(s): R21 - Rash and other nonspecific skin eruption Plan: f/u with dermatology (3) Osteoporosis: Comment: 04/11 T score -2.6 femoral neck, patient will see [facility] Code(s): M81.0 - Age-related osteoporosis without current pathological fracture Plan: cont vit D and exercise (4) Annual physical exam: Code(s): Z00.00 - Encounter for general adult medical examination without abnormal findings Plan: well balanced diet, regular exercise, refer for colonoscopy (5) HTN (hypertension): Code(s): I10 - Essential (primary) hypertension Plan: cont Olmesartan Orders: Orders Lipid Panel 365 Days I10 - Essential (primary) hypertension, M81.0 - Age-related osteoporosis without current pathological fracture, Z00.00 - Encounter for general adult medical examination without abnormal findings Complete Blood Count Auto Diff 365 Days I10 - Essential (primary) hypertension, M81.0 - Age-related osteoporosis without current pathological fracture, Z00.00 - Encounter for general adult medical examination without abnormal findings Vitamin D 25-OH Total 365 Days I10 - Essential (primary) hypertension, M81.0 - Age-related osteoporosis without current pathological fracture, Z00.00 - Encounter for general adult medical examination without abnormal findings PT Evaluation and Treatment Today M25.551 - Pain in right hip Comprehensive [place]. Panel Fast 365 Days I10 - Essential (primary) hypertension, M81.0 - Age-related osteoporosis without current pathological fracture, Z00.00 - Encounter for general adult medical examination without abnormal findings TSH reflex Free T4 365 Days I10 - Essential (primary) hypertension, M81.0 - Age-related osteoporosis without current pathological fracture, Z00.00 - Encounter for general adult medical examination without abnormal findings Referrals Dermatology Referral R21 - Rash and other nonspecific skin eruption Gastroenterology Referral Z00.00 - Encounter for general adult medical examination without abnormal findings Medications: New meloxicam 15 mg PO DAILY 20 tabs 0RF baclofen 10 mg PO BEDTIME 30 tabs 0RF Coding Level of Care Code Est Pt Prev Care 40-64y(71963) Diagnoses Hip pain, right M25.551 Rash R21 Osteoporosis M81.0 Annual physical exam Z00.00 HTN (hypertension) I10
== END 2023-03-27 09:51 | disposition home or self-care (01) ==
PROVIDERS: Visit Provider Internal Medicine
DX: M25.551 Pain in right hip (principal); R21 Rash and other nonspecific skin eruption; M81.0 Age-related osteoporosis without current pathological fracture; Z00.00 Encounter for general adult medical examination without abnormal findings; I10 Essential (primary) hypertension
CPT/HCPCS: 99396

== ENCOUNTER 2023-07-09 09:09 | Outpatient (AMB) | payer OTHER, SELFPAY ==
[2023-07-09 09:10] VITALS: BP 120/72; PULSE 61; BMI 29.7
--- NOTE | 2023-07-09 09:10 | A.OFFVIS_ITS ---
Intake Vital Signs 07/09/23 09:10 Height 5 ft 3 in Weight 167 lb 8.821 oz BMI 29.7 BP 120/72 Blood Pressure Location Lt brachial Position Sitting Pulse 61 Intake Visit Reasons: 1 yr follow up Intake Note: 1 year follow-up with ekg feeling good [employer] Required: No Allergies No Known Allergies Allergy (Verified 03/27/23 09:01) Medication List - Last Reconciled 07/09/23 by Westley Haines MD albuterol sulfate 90 mcg/actuation 2 puffs inhalation Q6H PRN metoprolol tartrate 12.5 mg (1/2 x 25 mg) PO ONCE PRN olmesartan 5 mg PO DAILY HPI HPI Comments History of Present Illness Details Michelle comes for follow-up. She is currently dealing with a diffuse skin condition with maculopapular rash of unclear etiology. She is currently taking no therapy for it. She says a blood pressures been very well control on low-dose olmesartan and wants to try to come off it. She has modified her lifestyle and participate in weight loss program. She also has not had any major episodes of SVT. She says she has 2 events 1 during daytime which resolved quickly and 1 during nighttime, she has not sure of that. She has not had any exertional chest pain. No shortness of breath, orthopnea, PND. [facility] Medical History Skin cancer Annual physical exam SVT (supraventricular tachycardia) Chest pain HTN (hypertension) Right elbow tendinitis Fatigue DJD (degenerative joint disease) Lower back pain Surgical History H/O colonoscopy Family History Mother COPD (chronic obstructive pulmonary disease) Social History Housing: House Alcohol intake: current Alcohol intake frequency: holidays/special occasions only Patient Tobacco Use Status: Never used Tobacco e-Cigarette/Vaping Use: Never Used Second Hand Smoke Exposure: No Current occupational status: employed Cognitive needs: No Hearing needs: No Vision needs: No Review of Systems Const Denies chills, Denies fatigue, Denies fever(s), Denies frequent falls, Denies weakness, Denies weight gain and Denies weight loss ENT Denies dizziness Card Denies chest pain, Denies leg edema, Denies lightheadedness, Denies palpitations, Denies dyspnea, Denies dyspnea on exertion, Denies orthopnea and Denies other (loss of consciousness) Resp Denies cough, Denies dyspnea and Denies dyspnea on exertion GI Denies hematochezia and Denies change in stool character Musc Denies abnormal gait, Denies muscle weakness, Denies numbness, Denies radiating pain into limb and Denies tingling Neuro Denies Abnormal speech present, Denies abnormal gait, Denies dizziness, Denies frequent falls, Denies numbness, Denies tingling and Denies weakness Endo Denies fatigue and Denies palpitations Physical Exam Vital Signs: Last Vital Signs Pulse 61 07/09/23 09:10 BP 120/72 07/09/23 09:10 BMI result Body Mass Index 29.7 Const General: cooperative, comfortable, no acute distress, alert, awake, anxious and well groomed Nutritional Appearance: overweight Orientation/consciousness: patient oriented x3 Limitations: no limitations Neck Neck: Yes trachea midline, Yes supple and Yes no JVD Chest Chest palpation & inspection: normal inspection of the chest Resp Effort & Inspection: normal respiratory effort Auscultation: clear to auscultation bilaterally Cardio Jugular venous distension: no JVD Palpation: normal PMI Rate: regular rate Rhythm: regular rhythm Heart sounds: S1 normal heart sound present, S2 normal heart sound present, no click, no gallops, no murmurs and no rubs GI Auscultation: normal bowel sounds Skin General skin exam: no rashes or lesions noted Neuro General: patient oriented x3 and no focal motor deficits Speech: No Abnormal speech present Extrem General: Yes no clubbing, cyanosis or edema Psych Appearance: grossly normal Affect: Anxious affect present Office Procedures EKG Details: EKG shows normal sinus rhythm with normal EKG [id number], Complete Assessment & Plan Assessment & Plan (1) SVT (supraventricular tachycardia): Comment: negative2 weeks Holter, f/u Dr. Haines Code(s): I47.1 - Supraventricular tachycardia Plan: Supraventricular tachycardia of AVNRT type. Patient has no recurrent symptoms. We discussed about avoidance of stimulants. Stress mitigation strategies was discussed. Also discussed about vagal maneuvers. If she has very prolonged episode she is advised take p.r.n. metoprolol as need be. No long-term therapy is recommended at this point in time. She understands management well. (2) HTN (hypertension): Code(s): I10 - Essential (primary) hypertension Plan: Hypertension which is currently well optimized. She wants to curtail use of antihypertensive wants to come of olmesartan. I think this is reasonable for blood pressure remains well controlled. Advised her to reduce her olmesartan to 2.5 mg daily. Advised to monitor her blood pressure on a regular basis. She is willing to do that. For blood pressure remains controlled we can discontinue olmesartan therapy and just follow lifestyle modification. We discussed about managing adequate hydration. Follow up in the clinic in 2 years time, sooner p.r.n.. Thank you for allowing me to partake in her care Medications: Changed From olmesartan Keep appt on 07/09/23 5 mg PO DAILY 90 tabs 0RF To olmesartan Keep appt on 07/09/23 2.5 mg (1/2 x 5 mg) PO DAILY 90 tabs 0RF Coding Level of Care Code Est Pt Level 4 (94359) Diagnoses SVT (supraventricular tachycardia) I47.1 HTN (hypertension) I10 CPT Codes EKG - CPT: 08546-[id number], Complete ([id number])
== END 2023-07-09 09:37 | disposition home or self-care (01) ==
PROVIDERS: PCP Internal Medicine; Visit Provider Internal Medicine Cardiovascular Disease
DX: I47.10 Supraventricular tachycardia, unspecified (principal); I10 Essential (primary) hypertension
CPT/HCPCS: 93010; 99214

== ENCOUNTER → 2023-07-09 09:09 | Outpatient (BNVA) | payer OTHER, SELFPAY | PROVIDERS: PCP Internal Medicine; Visit Provider Internal Medicine Cardiovascular Disease | DX: I47.10 Supraventricular tachycardia, unspecified (principal); I10 Essential (primary) hypertension; Z79.899 Other long term (current) drug therapy | CPT/HCPCS: 93005 ==

== ENCOUNTER 2024-05-06 16:17 | Outpatient (REF) | payer OTHER, SELFPAY | END 2024-05-06 16:18 | disposition home or self-care (01) | LOC: HO.MAMMO 16:17 | PROVIDERS: PCP Internal Medicine; Visit Provider Internal Medicine | DX: Z12.31 Encounter for screening mammogram for malignant neoplasm of breast (principal) | CPT/HCPCS: 77063; 77067 ==

== ENCOUNTER 2025-01-11 07:52 | Outpatient (REF) | payer OTHER, SELFPAY ==
[2025-01-11 12:01] LABS: Alanine Aminotransferase 33 U/L (0-31); Albumin Level 4.5 g/dL (3.5-5.0); Alkaline Phosphatase 80 U/L (39-117); Anion Gap 15 (12-20); Aspartate Amino Transferase 36 U/L (5-31); Blood Urea Nitrogen 13 mg/dL (9-16); Calcium 9.3 mg/dL (8.4-10.2); Carbon Dioxide 25 mmol/L (22-29); Chloride 105 mmol/L (96-108); Cholesterol 261 mg/dL (<200); Estimated Glomerular Filt Rate > 60; Gamma Glutamyl Transpeptidase 83 U/L (7-33); HDL Cholesterol 111 mg/dL (>40); Potassium 4.0 mmol/L (3.3-5.1); Sodium 141 mmol/L (135-145); Total Protein 7.4 g/dL (6.5-8.0); Triglycerides 56 mg/dL (<150)
[2025-01-11 13:27] LABS: Appearance Urine Clear; Glucose Urine UA Negative (Negative); PH 5.5 (5.0-9.0); Specific Gravity - Urine 1.010 (1.005-1.025); UMIC TRIGGER UA YES
== END 2025-01-11 07:53 | disposition home or self-care (01) ==
LOC: HO.HMGCLDS 07:52
PROVIDERS: PCP Internal Medicine; Visit Provider Internal Medicine
DX: I10 Essential (primary) hypertension (principal); K80.20 Calculus of gallbladder without cholecystitis without obstruction
CPT/HCPCS: 36415; 80053; 80061; 81001; 82977; 85025; 85652; 96127

== ENCOUNTER 2025-01-11 07:52 | Outpatient (AMB) | payer OTHER, SELFPAY ==
--- OUTSIDE RECORDS SUMMARY | 2025-01-11 07:56 | XMS_ITS | Clinical Summary ---
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 Active Yuvafem 10 MCG tablet vaginal tablet INSERT 1 TABLET TWICE A WEEK BY VAGINAL ROUTE FOR 84 DAYS. Active imiquimod (Aldara) 5 % cream Active ibuprofen 600 MG tablet Take 1 tablet by mouth every 6 (six) hours if needed. Active fluconazole (Diflucan) 150 MG tablet Take 1 tablet by mouth at bedtime. Active desonide (DesOwen) 0.05 % cream Active ProAir HFA 108 (90 Base) MCG/ACT inhaler INHALE 1 TO 2 PUFFS 6 TIMES A DAY NEEDED FOR WHEEZING FOR 5 DAYS Active Active Problems No known active problems Family History Medical History Relation Name Comments Macular degeneration Mother Relation Name Status Comments Mother Social History Tobacco Use Types Packs/Day Years Used Date Smoking Tobacco: Never Smokeless Tobacco: Never Tobacco Cessation:Counseling Given: Not Answered Comments Unknown Sex and Gender Information Value Date Recorded Sex Assigned at Female 02/18/2022 10:19 AM EDT Legal Sex Female 10:19 AM EDT Gender Identity Female 02/18/2022 10:19 AM EDT Sexual Orientation Straight 02/18/2022 10 :19 AM EDT Plan of Treatment Health Maintenance Due Date Last Done Comments CT Colonography 1961 Colonoscopy 1961 Colorectal Cancer Screening 1961 Depression Screening 1961 FIT DNA/Cologuard 1961 FIT 1961 FOBT 1961 HIV Screening 1961 SDOH Screening 1961 Sigmoidoscopy 1961 Disability Screening 1961 Alcohol/Substance Use Screening 1973 Hepatitis C Screening 1979 Pap Smear 1982 Cervical Cancer Screening 1991 HPV/Cotest 1991 Mammogram 2001 Pneumococcal Vaccine: 50+ Years (1 of 1 - PCV) 2011 Zoster Vaccines (1 of 2) 2011 Tobacco Screening 06/11/2024 06/11/2023 COVID-19 Vaccine (3 - 2024-2 6 season) 2024 09/25/2020, 09/04/2020 Influenza Vaccine (#1) 2024 , 02/01/2021 DTaP/Tdap/Td Vaccines (3 - T d or Tdap) 12/24/2030 12/24/2020, 02/02/2009 RSV Patients and Patients Aged 60 years or older (1 - 1-dose 75+ series) 2036 HIB Vaccines Aged Out No longer eligi ble based on patient's age to complete this topic HPV Vaccines Aged Out No longer eligi ble based on patient's age to complete this topic Hepatitis A Vaccines Aged Out No long er eligible based on patient's age to complete this topic Hepatitis B Vaccines Aged Out No long er eligible based on patient's age to complete this topic IPV Vaccines Aged Out No longer eligi ble based on patient's age to complete this topic Meningococcal B Vaccine Aged Out No l onger eligible based on patient's age to complete this topic Meningococcal Vaccine Aged Out No yousuf mitra eligible based on patient's age to complete this topic RSV under 20 months Aged Out No longe r eligible based on patient's age to complete this topic Rotavirus Vaccines Aged Out No longer eligible based on patient's age to complete this topic Insurance [employer]
--- NOTE | 2025-01-11 08:07 | MHC.PC.OV ---
Vital Signs 01/11/25 08:08 Height 5 ft 3 in Weight 181 lb BMI 32.1 BP 122/84 Blood Pressure Location Lt brachial Position Sitting Respiration 18 Pulse 92 Pulse Source Pulse Oximeter Temp 98.1 F Temp Source Oral Pulse Oximetry (%) 98 Oxygen Delivery Method Room Air Intake Visit Reasons: ruq abd pain/disc/bloating Intake Note: Pt is here today for a sick visit. Pt c/o R upper abdominal pain discomfort and bloating. Pt states that she had u/s done and she has a gallstone. Allergies No Known Allergies Allergy (Verified 01/11/25 08:13) Tobacco use date assessed: 01/11/25 Dental Screening Dental Screen Date: 01/11/25 Did you have a dental visit in the last 12 months?: Yes Did you have a dental problem in the last 6 months where you did not have access to dental care?: No Was dental information given to patient?: Patient has dentist HPI ruq abd pain/disc/bloating HPI Details Patient complains of nausea, bloating on and off for a few weeks but developed right upper quadrant abdominal pain after eating seafood in the restaurant 4 days ago. She denies fever chills change in bowel habits or urination. Patient is going on the cruise on January 21. Hypertension is controlled on olmesartan [facility] Medical History Skin cancer Annual physical exam SVT (supraventricular tachycardia) Chest pain HTN (hypertension) Right elbow tendinitis Fatigue DJD (degenerative joint disease) Lower back pain Surgical History H/O colonoscopy Family History Mother COPD (chronic obstructive pulmonary disease) Social History Housing: House Alcohol intake: current Alcohol intake frequency: holidays/special occasions only Patient Tobacco Use Status: Never used Tobacco e-Cigarette/Vaping Use: Never Used Second Hand Smoke Exposure: No service: No Current occupational status: employed Cognitive needs: No Hearing needs: No Vision needs: No Questionnaire PHQ-9 Over the last 2 weeks, how often have you been bothered by any of the following problems? 1. Little interest or pleasure in doing things: not at all 2. Feeling down, depressed, or hopeless: not at all 3. Trouble falling or staying asleep, or sleeping too much: not at all 4. Feeling tired or having little energy: several days 5. Poor appetite or overeating: not at all 6. Feeling bad about yourself - or that you are a failure or have let yourself or your family down: not at all 7. Trouble concentrating on things, such as reading the newspaper or watching television: not at all 8. Moving or speaking so slowly that other people could have noticed. Or the opposite - being so fidgety or restless that you have been moving around a lot more than usual: not at all 9. Thoughts that you would be better off or of hurting yourself in some way: not at all Total score: 1 Depression Screening Interpretation: Negative Depression Screening Done: Yes 93083 - PHQ-9 Billing: Yes Source: Developed by Drs. Abdi Rivera, Nuria Houston, Neri Velasquez and colleagues, with an educational toni from [employer]. Thrive Questionnaire Date Thrive assessed: 01/11/25 I am a: Patient What is your living situation today?: I have a steady place to live Within the past 12 months, did the food you bought not last and you didn't have the money to get more?: Never true Within the past 12 months, did you worry whether your food would run out before you got money to buy more?: Never true Do you have trouble paying for medicines?: No Do you have trouble getting transportation to medical appointments?: No Do you have trouble paying your heating and electricity bill?: No Do you have trouble taking care of your child, family member or friend?: No Do you have trouble with day-to-day activities such as bathing, preparing meals, shopping, managing finances, etc.?: No Are you currently unemployed and looking for a job?: No Are you interested in more education?: No Please select the resources that you would like help with: None Currently or been in a relationship where the following occur: No concerns reported THRIVE Score: 0 AUDIT C Alcohol Use Questionnaire (AUDIT-C) 1. How often do you have a drink containing alcohol?: 2-3 times a week 2. How many drinks containing alcohol do you have on a typical day when you are drinking?: 1 or 2 3. How often do you have six or more drinks on one occasion?: Never Total Score: 3 JORDY-7 AMB Questionnaire JORDY-7 Date JORDY - 7 assessed: 01/11/25 Feeling nervous, anxious, or on edge: 0 = Not at all Not being able to stop or control worryin = Not at all Worrying too much about different things: 0 = Not at all Trouble relaxin = Not at all Being so restless that it is hard to sit still: 0 = Not at all Becoming easily annoyed or irritable: 0 = Not at all Feeling afraid as if something awful might happen: 0 = Not at all Total JORDY-7 score (0-4 normal; 5-9 mild; 10-14 moderate; 15-21 severe): 0 Source: Developed by Drs. Abdi Rivera, Nuria Houston, Neri Velasquez and colleagues, with an educational toni from [employer]. JORDY-7 Assessment Billing JORDY-7 Assessment Tool: JORDY-7 Assessment 06058 Review of Systems Const All systems reviewed & are unremarkable except as noted in HPI and below Eyes Reports no additional complaints ENT Reports no additional complaints Resp Reports no additional complaints GI Reports no additional complaints Reports no additional complaints Physical exam (Primary Care) Vital Signs: Last Vital Signs Temp 98.1 F 01/11/25 08:08 Pulse 92 01/11/25 08:08 Resp 18 01/11/25 08:08 BP 122/84 01/11/25 08:08 Pulse Ox 98 01/11/25 08:08 Oxygen Delivery Method Room Air 01/11/25 08:08 BMI result Body Mass Index 32.1 Tobacco/Smoking Status: Tobacco use Status Tobacco use date assessed 01/11/25 01/11/25 08:14 Patient Tobacco Use Status Never used Tobacco 01/11/25 08:14 e-Cigarette/Vaping Use Never Used 01/11/25 08:14 PHQ-9: PHQ-9 Score PHQ-9: Total score 1 01/11/25 08:14 Depression Screening Interpretation: Negative Thrive Assessment: Date of Thrive Assessment Date Thrive assessed 01/11/25 01/11/25 08:14 Currently or been in a relationship where the following occur: No concerns reported Const General: no acute distress HENMT Face and sinus: Yes normal facial exam Resp Effort & Inspection: normal respiratory effort Auscultation: clear to auscultation bilaterally Cardio Rhythm: regular rhythm Heart sounds: S1 normal heart sound present and S2 normal heart sound present GI Inspection: Yes normal to inspection Palpation (GI): Soft to palpation and No Rebound tenderness present Percussion: Yes normal to percussion Auscultation: normal bowel sounds Coding Level of Care Code Est Pt Level 4 (61949) Diagnoses HTN (hypertension) I10 Gallstones K80.20 Additional Codes JORDY-7 Assessment Billing - JORDY-7 Assessment Tool: JORDY-7 Assessment 53602 ([id number]) PHQ-9 - 73711 - PHQ-9 Billing: Yes ([id number]) Assessment & Plan Assessment & Plan (1) HTN (hypertension): Code(s): I10 - Essential (primary) hypertension Category: Medical Plan: Continue olmesartan (2) Gallstones: Code(s): K80.20 - Calculus of gallbladder without cholecystitis without obstruction Category: Medical Plan: Obtain ultrasound of gallbladder to evaluate for acute cholecystitis and check labs. Patient was advised to follow a low-fat diet Orders: Orders Comprehensive [place]. Panel Fast Today I10 - Essential (primary) hypertension, K80.20 - Calculus of gallbladder without cholecystitis without obstruction Gamma Glutamyl Transpeptidase Today I10 - Essential (primary) hypertension, K80.20 - Calculus of gallbladder without cholecystitis without obstruction US abdomen limited Today I10 - Essential (primary) hypertension, K80.20 - Calculus of gallbladder without cholecystitis without obstruction Complete Blood Count Auto Diff Today I10 - Essential (primary) hypertension, K80.20 - Calculus of gallbladder without cholecystitis without obstruction Lipid Panel Today I10 - Essential (primary) hypertension, K80.20 - Calculus of gallbladder without cholecystitis without obstruction Erythrocyte Sedimentation Rate Today I10 - Essential (primary) hypertension, K80.20 - Calculus of gallbladder without cholecystitis without obstruction UA w Microscopic Today I10 - Essential (primary) hypertension, K80.20 - Calculus of gallbladder without cholecystitis without obstruction
[2025-01-11 08:08] VITALS: BP 122/84; PULSE 92; RESP 18; TEMP 36.7; O2SAT 98; BMI 32.1
== END 2025-01-11 09:00 | disposition home or self-care (01) ==
LOC: HO.HMCC 07:53
PROVIDERS: PCP Internal Medicine; Visit Provider Internal Medicine
DX: I10 Essential (primary) hypertension (principal); K80.20 Calculus of gallbladder without cholecystitis without obstruction

== ENCOUNTER 2025-01-11 10:57 | Outpatient (REF) | payer OTHER, SELFPAY ==
--- NOTE | ~2025-01-11 | US_ITS ---
EXAMINATION: US ABDOMEN LIMITED CLINICAL INFORMATION: Calculus of the gallbladder without obstruction. COMPARISON: None available. TECHNIQUE: Real-time ultrasound of the right upper quadrant abdomen/gallbladder limited using grayscale technique. FINDINGS: Intraluminal hyperechoic abnormality with posterior shadowing in a nondistended gallbladder. No gallbladder wall thickening. No pericholecystic fluid collection. Common bile duct measures 2 mm. US/US abdomen limited IMPRESSION: Cholelithiasis. No choledocholithiasis. No acute calculus cholecystitis. Electronically signed by: Gigi Payne MD 01/11/2025 11:20 AM EDT
== END 2025-01-11 10:58 | disposition home or self-care (01) ==
LOC: HO.HMGCX 10:57
PROVIDERS: PCP Internal Medicine; Visit Provider Internal Medicine
DX: K80.20 Calculus of gallbladder without cholecystitis without obstruction (principal); I10 Essential (primary) hypertension
CPT/HCPCS: 76705

== ENCOUNTER → 2025-01-11 11:01 | Outpatient (BNV) | payer OTHER, SELFPAY | PROVIDERS: PCP Internal Medicine; Visit Provider Radiology Diagnostic Radiology | DX: K80.20 Calculus of gallbladder without cholecystitis without obstruction (principal) | CPT/HCPCS: 76705 ==

== ENCOUNTER 2025-01-18 12:00 | Outpatient (REF) | payer OTHER, SELFPAY ==
--- OUTSIDE RECORDS SUMMARY | 2025-01-18 13:16 | XMS_ITS | Clinical Summary ---
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
[2025-01-18 13:51] LABS: Appearance Urine Clear; Glucose Urine UA Negative (Negative); PH 6.5 (5.0-9.0); Specific Gravity - Urine 1.010 (1.005-1.025); UMIC TRIGGER UA YES
== END 2025-01-18 12:01 | disposition home or self-care (01) ==
LOC: HO.HMGCLDS 12:00
PROVIDERS: PCP Internal Medicine; Visit Provider Internal Medicine
DX: Z00.00 Encounter for general adult medical examination without abnormal findings (principal)
CPT/HCPCS: 81001; 87086

== ENCOUNTER 2025-02-23 12:41 | Outpatient (AMB) | payer OTHER, SELFPAY ==
--- NOTE | 2025-02-23 12:50 | MHC.OFFVIS ---
Vital Signs 02/23/25 12:58 Height 5 ft 3 in Weight 178 lb BMI 31.5 BP 119/76 Blood Pressure Location Rt brachial Position Sitting Pulse 88 Intake Visit Reasons: gallstones Intake Note: This patient was referred by Dr. Estes for an assessment of gallstones. Patient c/o: nausea for 6m. States gallstone is a big size. Only one episode of RUQ pain after eating oysters w/butter. Imagin01/11/2025~ Abd [facility] Investigation Division Captain Required: No Accompanied by: Self / Same As Patient Allergies No Known Allergies Allergy (Verified 02/23/25 12:56) Medication List - Last Reconciled 02/23/25 by Dexter Marques MD albuterol sulfate 90 mcg/actuation 2 puffs inhalation Q6H PRN olmesartan 2.5 mg (1/2 x 5 mg) PO DAILY HPI HPI gallstones: Details: [age] year old female referred for gallstones She says that she had some nausea a few months ago and she had a friend who is an research laboratory technician. An ultrasound was done which showed gallstones. She had never had any right upper quadrant pain. She says she was eventually sent by her primary care physician for an official ultrasound and this does show gallstones She has good oral intake. It seems that her nausea has resolved. [facility] Medical History Gallstones Skin cancer Annual physical exam SVT (supraventricular tachycardia) Chest pain HTN (hypertension) Right elbow tendinitis Fatigue DJD (degenerative joint disease) Lower back pain Surgical History H/O colonoscopy Family History Mother COPD (chronic obstructive pulmonary disease) Social History Housing: House Alcohol intake: current Alcohol intake frequency: holidays/special occasions only Patient Tobacco Use Status: Never used Tobacco e-Cigarette/Vaping Use: Never Used Second Hand Smoke Exposure: No service: No Current occupational status: employed Cognitive needs: No Hearing needs: No Vision needs: No Review of Systems Const Denies chills and Denies fever(s) Card Denies chest pain, Denies dyspnea and Denies dyspnea on exertion Resp Denies cough, Denies dyspnea and Denies dyspnea on exertion GI Denies hematochezia and Denies change in bowel habits Denies hematuria Musc Denies back pain and Denies limited range of motion Neuro Denies focal weakness and Denies convulsions Psych Denies depression and Denies mood swings Physical Exam Vital Signs: Last Vital Signs Pulse 88 02/23/25 12:58 BP 119/76 02/23/25 12:58 BMI result Body Mass Index 31.5 Const General: comfortable and no acute distress Orientation/consciousness: patient oriented x3 Neck Neck: Yes no lymphadenopathy Resp Auscultation: clear to auscultation bilaterally Cardio Rhythm: regular rhythm GI Palpation (GI): Soft to palpation, nontender and no guarding Neuro General: patient oriented x3 Assessment & Plan Assessment & Plan (1) Gallstones: Comment: US 12/2024, gallstone no cholecystitis Code(s): K80.20 - Calculus of gallbladder without cholecystitis without obstruction Category: Medical Plan: She has gallstones on a previous ultrasound done last December,. She says that she really does not feel that she had symptoms. This has any abdominal pain or even right upper quadrant pain or tenderness She denies other GI complaints currently. Her abdominal exam is very benign I did tell her the option of proceeding with laparoscopic cholecystectomy. I explained the technique of this procedure as well as the risks of bleeding, infections, injury to other organs, bile leak, he had stones, conversion to open, as well as the benefits and alternatives She says that she does not want to proceed with any surgical intervention currently I did give her my card and instructed her to call the office if she develops symptoms so we can review of the option of cholecystectomy. Coding Level of Care Code New Pt Level 3 (23284) Diagnoses Gallstones K80.20
[2025-02-23 12:58] VITALS: BP 119/76; PULSE 88; BMI 31.5
--- OUTSIDE RECORDS SUMMARY | 2025-02-23 15:16 | XMS_ITS | Clinical Summary ---
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
--- OUTSIDE RECORDS SUMMARY | 2025-02-23 15:17 | XMS_ITS | Data Portability ---
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 Is Active? No [id number] Information not available 02/22/2020 Education 4 Year College Information not available 05/04/2012 What Is The Highest Grade Or Level Of School You Have Completed Or The Highest Degree You Have Received? [id number] Information not available 06/11/2021 How Many Days In The Past Year Have You Had A Heavy Drinking Consumption (4+ Female, 5+ Male)? 0 Information not available 05/21/2019 Are There Any Guns Present In Your Home? No Information not available 06/11/2021 High Number Of Sexual Partners No Information not available 11/02/2015 To Which Gender Do You Self-identify? Female Information not available 11/02/2015 Marital Status Has Boyfriend Is Now Sexually Active. Information not available 08/15/2022 What Was The Date Of Your Most Recent Tobacco Screening? 11/10/2024 Information not available 11/10/2024 What Is Your Relationship Status? New Boyfriend Information not available 08/15/2022 Are You Sexually Active? Yes Information not available 08/15/2022 How Much Tobacco Do You Smoke? No [id number] Information not available 02/22/2020 General Stress Level Low [id number] Information not available 06/05/2020 Have You Recently (within The Last 12 Weeks, Or During A Current ) Traveled To Or Lived In A Zika-affected Area? No Information not available 11/02/2015 How Many Days In The Past Year Have You Consumed 4 Or More Drinks? 4 Information not available 06/11/2021 Sex: Female Functional Status Question Answer Note LastModified by Organizat ion Details LastModified Time Do you use any illicit or recreational drugs? No Information not available 06/11/2021 Do you or have you ever used any other forms of tobacco or nicotine? No Information not available 06/11/2021 What is your level of alcohol consumption? Occasional [id number] Information not available 02/22/2020 Do you or have you ever used smokeless tobacco? Never used smokeless tobacco [id number] Information not available 02/22/2020 Are you currently employed? 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 Never used electronic cigarettes [id number] Information not available 02/22/2020 What is your exercise level? Occasional [id number] Information not available 02/22/2020 Mental Status Question Answer Note LastModified by Organization D etails LastModified Time Do you feel stressed (tense, restless, nervous, or anxious, or unable to sleep at night)? [id number] Information not available 06/11/2021 Family History Relationship Description Onset Age of this Age Resolved Age Notes LastModified by Organization Details LastModified Time Mother Hypertensive disorder previo usly record ed as Hypert ension Not available 07/13/2015 14:57:00 Mother Malignant neoplastic disease melano ma (previ ously record ed as Cancer ) Not available 07/13/2015 14:57:00 Sister Malignant neoplastic disease squamo us cell (previ ously record ed as Cancer ) Not available 07/13/2015 14:57:00 Medical History Condition Response Anesthesia complications N High Blood Pressure Y Candidate for MyRisk panel N Autoimmune Condition N Kidney or Bladder Problems Y Thyroid Problems N Depression N Lung Disease N GI Problems N Defects or Inherited Disease N History of Ovarian Cancer N Anemia N History of Breast Cancer N ANNETTE exposure N BRCA testing in past N Osteopenia Y Psychiatric Illness N Anxiety Disorder N Diabetes N Arthritis N Headaches or Migraines N Infertility N Asthma N History of Cancer Y Endometriosis N Hepatitis N Heart Disease Y Hypertension Y Gynecological History Statement/Question Response If Post Menopausal, Age at Menopause 51 Age at Menarche 13 Most Recent Mammogram 01/31/2024 Age at First Child 29 Most Recent Bone Density 07/02/2022 Obstetrics History GPAL:G 2 P 2 0 0 2 Type Value Full Term 2 Living 2 Total 2 Immunizations Vaccine Type Date Status Note Provider Nam e and Address Organization Details Recorded Time Influenza, split virus, quadrivalent, preservative 1 completed [place] in [facility], 06/11/2021 10:05:45 COVID-19, mRNA, LNP-S, PF, 30 mcg/0.3 mL dose 1 completed [place] in [facility], 06/11/2021 10:06:20 Past Encounters Encounter ID Performer Location Encounter Start Date Encounter Closed Date Diagnosis/Indication Diagnosis SNOMED-CT Code Diagnosis ICD10 Code Diagnosis IMO Codes Diagnosis Note [id number] MD ROSALIND Bourgeois MD [address] [facility] [place] [address] 05/04/2012 15:18:50 05/06/2012 09:28:58 [id number] MD ROSALIND Bourgeois MD [address] [facility] [place] [address] 05/11/2012 13:15:47 05/11/2012 15:42:43 [id number] MD ROSALIND Bourgeois MD [address] [facility] [place] [address] 07/15/2013 08:00:28 07/15/2013 15:08:38 Specialized medical examination [id number] Screening for malignant neoplasm of rectum 738270422 Screening mammography 12329202 Screening for malignant neoplastic disease [id number] MD ROSALIND Bourgeois MD [address] [place] [address],[facility] [place] [address] 08/09/2013 10:14:08 08/09/2013 15:39:15 Candidal vulvovaginitis 47295271 Atrophic vaginitis [id number] MD ROSALIND Bourgeois MD [address] [place] [address],[facility] [place] [address] 07/15/2014 14:27:47 07/15/2014 16:01:48 Specialized medical examination [id number] Screening for malignant neoplasm of rectum 100015347 Screening mammography 50781450 Dyspareunia [id number] MD ROSALIND Bourgeois MD [address] [place] [address] [place] [address] 07/13/2015 14:31:22 07/13/2015 15:41:24 Dyspareunia 83007983 N94.1 Specialize d medical examination 56808015 Z01.419 Screening for malignant neoplasm of rectum 439983376 Z12.12 Screening mammography 24 994313 Z12.31 [id number] MD ROSALIND Bourgeois MD [address] [place] [address] [place] [address] 11/02/2015 14:54:58 11/02/2015 16:13:22 Atypical squamous cells of undetermined significance on cervical Papanicolaou smear 182570931 R87.610 [id number] MD ROSALIND Bourgeois MD [address] [place] [address] [place] [address] 07/19/2016 13:10:17 07/19/2016 14:58:10 Specialized medical examination 27612175 Z01.419 Screening for malignant neoplasm of rectum 896898994 Z12.12 Screening mammography 24 456133 Z12.31 Atrophic vaginitis 58152 000 N95.2 [id number] MD ROSALIND Bourgeois MD [address] [place] [address] [place] [address] 05/18/2018 08:02:42 05/18/2018 12:04:47 Specialized medical examination 39648202 Z01.419 Screening mammography 24 867427 Z12.31 Atrophic vaginitis 00090 000 N95.2 [id number] MD ROSALIND Bourgeois MD [address] [place] [address], [place] [address] 05/21/2019 09:18:42 05/21/2019 13:44:14 Specialized medical examination 28906071 Z01.419 Screening for malignant neoplasm of rectum 051318942 Z12.12 Screening mammography 24 125436 Z12.31 [id number] MD ROSALIND Bourgeois MD [address] [place] [address], [place] [address] 06/05/2020 14:57:34 06/05/2020 15:43:28 Specialized medical examination 51504930 Z01.419 Screening mammography 24 123838 Z12.31 [id number] MD ROSALIND Bourgeois MD [address] [place] [address], [place] [address] 06/11/2021 10:00:18 06/11/2021 10:40:21 Specialized medical examination 98293221 Z01.419 Screening mammography 24 995674 Z12.31 Atrophic vaginitis 00458 000 N95.2 [id number] MD ROSALIND Bourgeois MD [address] [place] [address], [place] [address] 08/15/2022 08:42:34 08/15/2022 09:44:30 Specialized medical examination 19735203 Z01.419 Screening for malignant neoplasm of rectum 917175698 Z12.12 Screening mammography 24 712008 Z12.31 Atrophic vaginitis 86621 000 N95.2 [id number] MD ROSALIND Bourgeois MD [address] [place] [address], [place] [address] 08/20/2023 08:00:37 08/20/2023 10:44:12 Specialized medical examination 54949990 Z01.419 Screening for malignant neoplasm of rectum 982521187 Z12.12 Screening mammography 24 219638 Z12.31 Menopausal syndrome 1237 55724 N95.8 [id number] MD ROSALIND Bourgeois MD [address] [facility] [place] [address] 11/10/2024 08:15:39 11/10/2024 11:21:32 Specialized medical examination 93001637 Z01.419 Screening for malignant neoplasm of rectum 740183202 Z12.12 Screening mammography 24 295094 Z12.31 Health Concerns Section Related Observation LastModified by Organization Detai ls LastModified Time None Recorded Concern Status LastModified by Organization Details LastModified Time None Recorded Advance Directives Directive None Recorded Payers Insurance Date Sequence Insurance Name Policy Number Policy Connell Covered Member ID Connell Member ID Guarantor Name 11/10/2024 1 [employer] [place] [facility] [facility] [id number] Michelle Syner [id number] Michelle Syner 11/10/2024 1 [facility] [id number] Michelle Syner [id number] Michelle Syner 11/10/2024 1 [facility] [id number] Michelle Syner [id number] Michelle Syner Notes Date Note Type Note Provider Name and Address Organization Details Recorded Time 06/05/2020 text/html She is here for annual exam, is doing well. Her mother this past year. __ Note from 2019: She is here for annual exam, is doing well. She lost her boyfriend of 5 years to a heart attack. she fell on the ice a month ago and is still healing , had nose and ribs injury. She is not using the E2 cream anymore, don't need it. Rosalind Parr MD [address] [facility],[address], [place], [address], [place] [facility], 06/05/2020 15:23:56 06/11/2021 text/html She is here for annual exam, her vaginal atrophy is becoming more uncomfortable.She has not used the E2 cream since 2019. _ note from 06/11: She is here for annual exam, is doing well. Her mother this past year.She has been haivng more urinary urgency and incontinence of small amounts. She had stopped the E2 cream 2 years ago. Rosalind Parr MD [address], [place], [address], [place] - [facility], 06/11/2021 10:33:07 08/15/2022 text/html She is here for annual, restarted the estradiol cream a year ago but only used one tube. Is now sexually active, has a new partner, using glide but is willing to try a less messy vaginal estradiol. note from 2021: She is here for annual exam, her vaginal atrophy is becoming more uncomfortable.She has not used the E2 cream since 2019. Rosalind Parr MD [address], [place], [address], [place] - 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, had 3 biopsies, has no real diagnosis. They are presently treating it as if it were malaria because the rash look like malaria, but it's not that. She tried the Yuvafem tabs but did not like putting anything in her vaginal canal so she stopped. She declines any vaginal treatment. ____ note from 2022: She is here for annual, restarted the estradiol cream a year ago but only used one tube. Is now sexually active, has a new partner, using glide but is willing to try a less messy vaginal estradiol. Rosalind Parr MD [address], [place], [address], [place] - [facility], 08/20/2023 08:35:54 11/10/2024 text/html She is here for annual, doing well, the rash is on her legs now, no one can discover how to treat it. She got a mammo through her PCP, we do not have a record, it was normal she notes, 6 months ago. 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, had 3 biopsies, has no real diagnosis. They are presently treating it as if it were malaria because the rash look like malaria, but it's not that.She tried the Yuvafem tabs but did not like putting anything in her vaginal canal so she stopped. She declines any vaginal treatment. ____ note from 2022: She is here for annual, restarted the estradiol cream a year ago but only used one tube. Is now sexually active, has a new partner, using glide but is willing to try a less messy vaginal estradiol. Rosalind Parr MD [address] [place] [address],[address], [place], [address], [place] - [facility], 11/10/2024 08:52:06 OBGyn Episode No OBEpisode recorded.
== END 2025-02-23 13:56 | disposition home or self-care (01) ==
LOC: HO.HGS 12:42
PROVIDERS: PCP Internal Medicine; Visit Provider Surgery
DX: K80.20 Calculus of gallbladder without cholecystitis without obstruction (principal)
CPT/HCPCS: 99203